=== PATIENT | male | born 1935 | race Caucasian/White ===

== ENCOUNTER 2021-05-22 19:22 | Inpatient (IN) | payer OTHER ==
[2021-05-22] MEDS ORDERED: SODIUM CHLORIDE 0.9% 500 ML INFUS.BAG IV ONE (20:53)
[2021-05-22 21:45] LABS: BASO % 0.3 % (0-2.0); EOS % 2.5 % (0-4.5); HEMATOCRIT 33.7 % (35.4-49); HEMOGLOBIN 11.2 GM/dL (11.7-16.9); LYMPH % 22.8 % (8-40); MCH 29.4 pg (25.7-33.7); MCHC 33.3 g/dl (32.0-35.9); MEAN CELL VOLUME 88.2 fl (80-96); MEAN PLT VOLUME 7.8 fl (7.5-11.1); MONO % 10.2 % (3.8-10.2); NEUT % 64.2 % (42.8-82.8); PLATELET COUNT 295 10^3/uL (134-434); RBC 3.82 M/mm3 (4.00-5.60); RDW 15.9 % (11.9-15.9); WHITE BLOOD COUNT 8.6 K/mm3 (4.0-10.0)
[2021-05-22 21:52] LABS: INR 1.09 (0.83-1.09); PROTHROMBIN TIME (PATIENT) 13.2 SEC (9.7-13.0)
[2021-05-22 21:55] LABS: ACTIVATED PTT 28.7 SECONDS (25.2-36.5)
[2021-05-22 22:10] LABS: CHLORIDE 107 mmol/L (98-107); SODIUM 140 mmol/L (136-145)
[2021-05-22 22:13] LABS: ALBUMIN 2.5 g/dl (3.4-5.0); ANION GAP 3 MMOL/L (8-16); BLOOD UREA NITROGEN 34.4 mg/dL (7-18); CALCIUM 8.2 mg/dL (8.5-10.1); CO2 29 mmol/L (21-32); GLUCOSE,RANDOM 133 mg/dL (74-106); LIPASE 420 U/L (73-393)
[2021-05-22 22:16] LABS: CREATININE 1.2 mg/dL (0.55-1.3); SGOT/AST 18 U/L (15-37); SGPT/ALT 17 U/L (13-61)
[2021-05-22 22:17] LABS: BILIRUBIN,TOTAL 0.5 mg/dL (0.2-1)
[2021-05-22 22:18] LABS: TOT PROT 6.4 g/dl (6.4-8.2)
[2021-05-22 22:19] LABS: ALK PHOS 126 U/L (45-117)
[2021-05-23] MEDS ORDERED: CEFTRIAXONE 1 GM in DEXTROSE 5%-WATER - 100 ML IVPB ONE (00:57)
[2021-05-23] MEDS ORDERED: CEFTRIAXONE 1 GM/50 ML BAG ONE (01:04)
[2021-05-23] MEDS: SODIUM CHLORIDE 1,000 ML IV SCH ×2 (05:24→12:08)
[2021-05-23] MEDS: INSULIN (NOVOLOG) ASPART 100 UNITS/ML 10ML VIAL SQ SCH ×4 (07:17→23:05)
[2021-05-23 08:56] LABS: EPI CELLS >36 /uL (0-25.1); HYALINE CASTS 193 /uL (0-3.1); PH,URINE 6.5 (5.0-8.0); URINE APPEARANCE CLOUDY; URINE BACTERIA >9,000 /uL (0-1359); URINE BILIRUBIN NEGATIVE (NEGATIVE); URINE COLOR YELLOW; URINE GLUCOSE (UA) NEGATIVE (NEGATIVE); URINE KETONE NEGATIVE (NEGATIVE); URINE LEUK ESTERASE 2+ (NEGATIVE); URINE NITRITE NEGATIVE (NEGATIVE); URINE PROTEIN 2+ (NEGATIVE); URINE RBC 3 /uL (0-23.9); URINE UROBILINOGEN 0.2 mg/dL (0.2-1.0); URINE WBC 92 /uL (0-25.8)
[2021-05-23] MEDS ORDERED: morphine CARPU-JECT 4 MG/1 ML DISP.SYRIN IVPUSH ONE (08:56)
[2021-05-23] MEDS ORDERED: MORPHINE SULFATE 2 MG/ML VIAL IVPUSH ONE (08:56)
[2021-05-23] MEDS ORDERED: MORPHINE SULFATE 2 MG/ML VIAL ONE (08:58)
[2021-05-23 10:45] LABS: BASO % 0.5 % (0-2.0); HEMATOCRIT 33.6 % (35.4-49); HEMOGLOBIN 11.2 GM/dL (11.7-16.9); LYMPH % 20.6 % (8-40); MCHC 33.3 g/dl (32.0-35.9); MEAN CELL VOLUME 87.3 fl (80-96); MEAN PLT VOLUME 7.6 fl (7.5-11.1); MONO % 7.7 % (3.8-10.2); NEUT % 67.2 % (42.8-82.8); PLATELET COUNT 275 10^3/uL (134-434); RBC 3.85 M/mm3 (4.00-5.60); RDW 16.2 % (11.9-15.9); WHITE BLOOD COUNT 8.2 K/mm3 (4.0-10.0)
[2021-05-23 11:08] LABS: ALBUMIN 2.5 g/dl (3.4-5.0); BLOOD UREA NITROGEN 30.9 mg/dL (7-18); CALCIUM 8.3 mg/dL (8.5-10.1)
[2021-05-23 11:09] LABS: MAGNESIUM 2.3 mg/dL (1.8-2.4)
[2021-05-23 11:11] LABS: CREATININE 0.9 mg/dL (0.55-1.3)
[2021-05-23 11:12] LABS: BILIRUBIN,TOTAL 0.6 mg/dL (0.2-1); IRON SERUM 24 ug/dL (50-175); PHOSPHOROUS 3.4 mg/dL (2.5-4.9); TOT PROT 6.3 g/dl (6.4-8.2)
[2021-05-23 11:15] LABS: TOTAL IRON BINDING CAPACITY 205 ug/dL (250-450)
[2021-05-23] MEDS: amLODIPine BESYLATE 5 MG TABLET (FP) PO SCH (12:36)
[2021-05-23] MEDS: CARVEDILOL 12.5 MG TABLET (FP) PO SCH ×2 (12:36→23:03)
[2021-05-23] MEDS: ASPIRIN 81 MG CHEWABLE TABLETS PO SCH (12:36)
[2021-05-23 13:19] VITALS: BMI 24.3
[2021-05-23] MEDS: HEPARIN NA (PORCINE) 5,000 UNITS/ML 1ML VIAL SQ SCH (23:03)
[2021-05-24] MEDS: HEPARIN NA (PORCINE) 5,000 UNITS/ML 1ML VIAL SQ SCH ×3 (05:44→21:51)
[2021-05-24] MEDS: SODIUM CHLORIDE 1,000 ML IV SCH (06:20)
[2021-05-24] MEDS: INSULIN (NOVOLOG) ASPART 100 UNITS/ML 10ML VIAL SQ SCH ×4 (06:30→21:51)
[2021-05-24] MEDS: CARVEDILOL 12.5 MG TABLET (FP) PO SCH ×2 (10:02→21:51)
[2021-05-24] MEDS: amLODIPine BESYLATE 5 MG TABLET (FP) PO SCH (10:02)
[2021-05-24] MEDS: ASPIRIN 81 MG CHEWABLE TABLETS PO SCH (10:02)
[2021-05-24 13:46] LABS: BASO % 0.5 % (0-2.0); EOS % 2.3 % (0-4.5); HEMATOCRIT 33.8 % (35.4-49); HEMOGLOBIN 11.3 GM/dL (11.7-16.9); LYMPH % 20.9 % (8-40); MCH 28.8 pg (25.7-33.7); MCHC 33.4 g/dl (32.0-35.9); MEAN CELL VOLUME 86.3 fl (80-96); MEAN PLT VOLUME 7.8 fl (7.5-11.1); MONO % 7.4 % (3.8-10.2); NEUT % 68.9 % (42.8-82.8); PLATELET COUNT 265 10^3/uL (134-434); RBC 3.92 M/mm3 (4.00-5.60); RDW 15.9 % (11.9-15.9); WHITE BLOOD COUNT 8.1 K/mm3 (4.0-10.0)
[2021-05-24 14:15] LABS: ALBUMIN 2.3 g/dl (3.4-5.0); CALCIUM 8.2 mg/dL (8.5-10.1); MAGNESIUM 2.5 mg/dL (1.8-2.4)
[2021-05-24 14:16] LABS: BLOOD UREA NITROGEN 26.6 mg/dL (7-18)
[2021-05-24 14:20] LABS: BILIRUBIN,TOTAL 0.6 mg/dL (0.2-1)
[2021-05-24] MEDS: MELATONIN 5 MG TABLETS PO PRN (22:27)
[2021-05-25] MEDS: SODIUM CHLORIDE 1,000 ML IV SCH (04:34)
[2021-05-25] MEDS: HEPARIN NA (PORCINE) 5,000 UNITS/ML 1ML VIAL SQ SCH ×3 (05:53→21:27)
[2021-05-25] MEDS: INSULIN (NOVOLOG) ASPART 100 UNITS/ML 10ML VIAL SQ SCH ×4 (06:02→21:33)
[2021-05-25 09:21] LABS: BASO % 0.3 % (0-2.0); EOS % 2.3 % (0-4.5); HEMOGLOBIN 10.7 GM/dL (11.7-16.9); LYMPH % 26.8 % (8-40); MCHC 33.6 g/dl (32.0-35.9); MEAN CELL VOLUME 86.4 fl (80-96); MEAN PLT VOLUME 7.7 fl (7.5-11.1); MONO % 9.2 % (3.8-10.2); NEUT % 61.4 % (42.8-82.8); PLATELET COUNT 274 10^3/uL (134-434); RDW 15.8 % (11.9-15.9); WHITE BLOOD COUNT 7.5 K/mm3 (4.0-10.0)
[2021-05-25 09:43] LABS: ALBUMIN 2.2 g/dl (3.4-5.0); BLOOD UREA NITROGEN 27.3 mg/dL (7-18); CALCIUM 7.8 mg/dL (8.5-10.1)
[2021-05-25 09:46] LABS: CREATININE 0.8 mg/dL (0.55-1.3)
[2021-05-25 09:48] LABS: BILIRUBIN,TOTAL 0.5 mg/dL (0.2-1); TOT PROT 5.7 g/dl (6.4-8.2)
[2021-05-25] MEDS: CARVEDILOL 12.5 MG TABLET (FP) PO SCH ×2 (10:00→21:28)
[2021-05-25] MEDS: amLODIPine BESYLATE 5 MG TABLET (FP) PO SCH (10:00)
[2021-05-25] MEDS: ASPIRIN 81 MG CHEWABLE TABLETS PO SCH (10:00)
[2021-05-25] MEDS: MELATONIN 5 MG TABLETS PO PRN (21:28)
[2021-05-26] MEDS: HEPARIN NA (PORCINE) 5,000 UNITS/ML 1ML VIAL SQ SCH ×3 (05:54→21:11)
[2021-05-26] MEDS: INSULIN (NOVOLOG) ASPART 100 UNITS/ML 10ML VIAL SQ SCH ×4 (06:16→21:12)
[2021-05-26 09:54] LABS: BASO % 0.8 % (0-2.0); EOS % 2.2 % (0-4.5); HEMATOCRIT 30.8 % (35.4-49); HEMOGLOBIN 10.2 GM/dL (11.7-16.9); LYMPH % 24.5 % (8-40); MCH 29.1 pg (25.7-33.7); MCHC 33.2 g/dl (32.0-35.9); MEAN CELL VOLUME 87.5 fl (80-96); MEAN PLT VOLUME 7.8 fl (7.5-11.1); MONO % 9.2 % (3.8-10.2); NEUT % 63.3 % (42.8-82.8); PLATELET COUNT 285 10^3/uL (134-434); RBC 3.52 M/mm3 (4.00-5.60); RDW 16.1 % (11.9-15.9); WHITE BLOOD COUNT 9.1 K/mm3 (4.0-10.0)
[2021-05-26] MEDS: CARVEDILOL 12.5 MG TABLET (FP) PO SCH ×2 (10:06→21:12)
[2021-05-26] MEDS: ASPIRIN 81 MG CHEWABLE TABLETS PO SCH (10:06)
[2021-05-26] MEDS: amLODIPine BESYLATE 5 MG TABLET (FP) PO SCH (10:06)
[2021-05-26 10:12] LABS: ALBUMIN 2.2 g/dl (3.4-5.0); BLOOD UREA NITROGEN 26.4 mg/dL (7-18); CALCIUM 8.1 mg/dL (8.5-10.1)
[2021-05-26 10:16] LABS: BILIRUBIN,TOTAL 0.5 mg/dL (0.2-1); CREATININE 0.8 mg/dL (0.55-1.3)
[2021-05-26 10:17] LABS: TOT PROT 5.6 g/dl (6.4-8.2)
[2021-05-26] MEDS: MELATONIN 5 MG TABLETS PO PRN (21:15)
[2021-05-27] MEDS ORDERED: ACETAMINOPHEN 325 MG TABLET (FP) PO ONE (00:16)
[2021-05-27] MEDS: INSULIN (NOVOLOG) ASPART 100 UNITS/ML 10ML VIAL SQ SCH (06:06)
[2021-05-27] MEDS: HEPARIN NA (PORCINE) 5,000 UNITS/ML 1ML VIAL SQ SCH ×3 (06:12→21:03)
[2021-05-27 09:54] LABS: EPI CELLS 2 /uL (0-25.1); HYALINE CASTS 1 /uL (0-3.1); PH,URINE 5.5 (5.0-8.0); URINE APPEARANCE CLOUDY; URINE BACTERIA 520 /uL (0-1359); URINE BILIRUBIN NEGATIVE (NEGATIVE); URINE COLOR YELLOW; URINE GLUCOSE (UA) NEGATIVE (NEGATIVE); URINE KETONE NEGATIVE (NEGATIVE); URINE LEUK ESTERASE 2+ (NEGATIVE); URINE NITRITE NEGATIVE (NEGATIVE); URINE PROTEIN 2+ (NEGATIVE); URINE RBC 9 /uL (0-23.9); URINE UROBILINOGEN 0.2 mg/dL (0.2-1.0); URINE WBC 777 /uL (0-25.8)
[2021-05-27] MEDS: CARVEDILOL 12.5 MG TABLET (FP) PO SCH ×2 (10:00→21:03)
[2021-05-27] MEDS: ASPIRIN 81 MG CHEWABLE TABLETS PO SCH (10:00)
[2021-05-27] MEDS: amLODIPine BESYLATE 5 MG TABLET (FP) PO SCH (10:00)
[2021-05-27] MEDS: ACETAMINOPHEN 325 MG TABLET (FP) PO PRN (10:00)
[2021-05-27 10:30] LABS: BASO % 0.6 % (0-2.0); EOS % 3.2 % (0-4.5); HEMATOCRIT 31.7 % (35.4-49); HEMOGLOBIN 10.5 GM/dL (11.7-16.9); LYMPH % 21.7 % (8-40); MCH 28.8 pg (25.7-33.7); MCHC 33.1 g/dl (32.0-35.9); MEAN CELL VOLUME 87.1 fl (80-96); MEAN PLT VOLUME 7.3 fl (7.5-11.1); MONO % 8.8 % (3.8-10.2); NEUT % 65.7 % (42.8-82.8); PLATELET COUNT 269 10^3/uL (134-434); RBC 3.64 M/mm3 (4.00-5.60); WHITE BLOOD COUNT 8.5 K/mm3 (4.0-10.0)
[2021-05-27 10:56] LABS: ALBUMIN 2.2 g/dl (3.4-5.0); CALCIUM 8.3 mg/dL (8.5-10.1)
[2021-05-27 10:57] LABS: BLOOD UREA NITROGEN 27.5 mg/dL (7-18)
[2021-05-27 11:00] LABS: CREATININE 0.9 mg/dL (0.55-1.3)
[2021-05-27 11:01] LABS: BILIRUBIN,TOTAL 0.4 mg/dL (0.2-1); TOT PROT 5.8 g/dl (6.4-8.2)
[2021-05-27] MEDS: INSULIN SLIDING SCALE (NOVOLOG) 1 VIAL SQ SCH ×3 (11:22→21:06)
[2021-05-27] MEDS ORDERED: PT OWN MED DRAWER 7, Y5N ONE (14:36)
[2021-05-27] MEDS: MELATONIN 5 MG TABLETS PO PRN (21:03)
[2021-05-28] MEDS: INSULIN SLIDING SCALE (NOVOLOG) 1 VIAL SQ SCH ×4 (06:03→21:12)
[2021-05-28] MEDS: HEPARIN NA (PORCINE) 5,000 UNITS/ML 1ML VIAL SQ SCH ×3 (06:03→21:08)
[2021-05-28] MEDS ORDERED: PT OWN MED DRAWER 7, Y5N ONE (06:12)
[2021-05-28] MEDS: ASPIRIN 81 MG CHEWABLE TABLETS PO SCH (09:35)
[2021-05-28] MEDS: amLODIPine BESYLATE 5 MG TABLET (FP) PO SCH (09:35)
[2021-05-28] MEDS: CARVEDILOL 12.5 MG TABLET (FP) PO SCH ×2 (09:36→21:08)
[2021-05-28] MEDS: LISINOPRIL 5 MG TABLET PO SCH (16:30)
[2021-05-28] MEDS: MELATONIN 5 MG TABLETS PO PRN (21:08)
[2021-05-29] MEDS: ACETAMINOPHEN 325 MG TABLET (FP) PO PRN (03:46)
[2021-05-29] MEDS: HEPARIN NA (PORCINE) 5,000 UNITS/ML 1ML VIAL SQ SCH ×3 (06:11→21:48)
[2021-05-29] MEDS: INSULIN SLIDING SCALE (NOVOLOG) 1 VIAL SQ SCH ×4 (06:11→21:48)
[2021-05-29] MEDS: LISINOPRIL 5 MG TABLET PO SCH (10:15)
[2021-05-29] MEDS: amLODIPine BESYLATE 5 MG TABLET (FP) PO SCH (10:15)
[2021-05-29] MEDS: CARVEDILOL 12.5 MG TABLET (FP) PO SCH ×2 (10:15→21:48)
[2021-05-29] MEDS: ASPIRIN 81 MG CHEWABLE TABLETS PO SCH (10:15)
[2021-05-29 19:19] LABS: BASO % 0.6 % (0-2.0); EOS % 3.6 % (0-4.5); HEMATOCRIT 31.4 % (35.4-49); HEMOGLOBIN 10.4 GM/dL (11.7-16.9); LYMPH % 22.8 % (8-40); MCH 28.9 pg (25.7-33.7); MCHC 33.1 g/dl (32.0-35.9); MEAN CELL VOLUME 87.2 fl (80-96); MEAN PLT VOLUME 7.1 fl (7.5-11.1); MONO % 9.9 % (3.8-10.2); NEUT % 63.1 % (42.8-82.8); PLATELET COUNT 297 10^3/uL (134-434); RDW 16.2 % (11.9-15.9); WHITE BLOOD COUNT 9.1 K/mm3 (4.0-10.0)
[2021-05-29 19:42] LABS: ALBUMIN 2.2 g/dl (3.4-5.0); CALCIUM 8.4 mg/dL (8.5-10.1)
[2021-05-29 19:43] LABS: BLOOD UREA NITROGEN 33.8 mg/dL (7-18)
[2021-05-29 19:47] LABS: BILIRUBIN,TOTAL 0.3 mg/dL (0.2-1); TOT PROT 5.8 g/dl (6.4-8.2)
[2021-05-30] MEDS: HEPARIN NA (PORCINE) 5,000 UNITS/ML 1ML VIAL SQ SCH ×3 (05:40→21:04)
[2021-05-30] MEDS: INSULIN SLIDING SCALE (NOVOLOG) 1 VIAL SQ SCH ×4 (06:04→21:05)
[2021-05-30] MEDS: amLODIPine BESYLATE 5 MG TABLET (FP) PO SCH ×2 (06:06→10:06)
[2021-05-30 09:25] LABS: EOS % 3.6 % (0-4.5); HEMATOCRIT 31.9 % (35.4-49); HEMOGLOBIN 10.8 GM/dL (11.7-16.9); LYMPH % 23.6 % (8-40); MCH 29.1 pg (25.7-33.7); MCHC 33.8 g/dl (32.0-35.9); MEAN CELL VOLUME 86.2 fl (80-96); MEAN PLT VOLUME 7.6 fl (7.5-11.1); NEUT % 62.8 % (42.8-82.8); PLATELET COUNT 293 10^3/uL (134-434); RDW 16.3 % (11.9-15.9); WHITE BLOOD COUNT 8.8 K/mm3 (4.0-10.0)
[2021-05-30 09:39] LABS: CALCIUM 8.3 mg/dL (8.5-10.1)
[2021-05-30 09:40] LABS: ALBUMIN 2.2 g/dl (3.4-5.0); BLOOD UREA NITROGEN 28.8 mg/dL (7-18)
[2021-05-30 09:43] LABS: CREATININE 0.9 mg/dL (0.55-1.3)
[2021-05-30 09:44] LABS: BILIRUBIN,TOTAL 0.5 mg/dL (0.2-1); TOT PROT 5.9 g/dl (6.4-8.2)
[2021-05-30] MEDS: LISINOPRIL 5 MG TABLET PO SCH (10:06)
[2021-05-30] MEDS: CARVEDILOL 12.5 MG TABLET (FP) PO SCH ×2 (10:06→21:04)
[2021-05-30] MEDS: ASPIRIN 81 MG CHEWABLE TABLETS PO SCH (10:06)
[2021-05-30] MEDS ORDERED: TUBERCULIN PPD 5 TU/0.1ML SYRINGE (IN PATIENT USE ONLY) ID ONE (12:00)
[2021-05-30] MEDS: ACETAMINOPHEN 325 MG TABLET (FP) PO PRN (19:22)
[2021-05-31] MEDS: HEPARIN NA (PORCINE) 5,000 UNITS/ML 1ML VIAL SQ SCH ×3 (05:58→21:08)
[2021-05-31] MEDS: INSULIN SLIDING SCALE (NOVOLOG) 1 VIAL SQ SCH ×4 (06:00→21:18)
[2021-05-31 09:15] LABS: BASO % 0.5 % (0-2.0); EOS % 3.7 % (0-4.5); HEMATOCRIT 32.4 % (35.4-49); HEMOGLOBIN 10.8 GM/dL (11.7-16.9); MCH 29.1 pg (25.7-33.7); MCHC 33.4 g/dl (32.0-35.9); MEAN CELL VOLUME 87.1 fl (80-96); MEAN PLT VOLUME 7.1 fl (7.5-11.1); MONO % 7.9 % (3.8-10.2); NEUT % 65.9 % (42.8-82.8); PLATELET COUNT 314 10^3/uL (134-434); RBC 3.72 M/mm3 (4.00-5.60); RDW 16.5 % (11.9-15.9); WHITE BLOOD COUNT 9.9 K/mm3 (4.0-10.0)
[2021-05-31 10:02] LABS: BLOOD UREA NITROGEN 30.1 mg/dL (7-18)
[2021-05-31 10:03] LABS: ALBUMIN 2.2 g/dl (3.4-5.0); CALCIUM 8.2 mg/dL (8.5-10.1)
[2021-05-31 10:05] LABS: CREATININE 0.9 mg/dL (0.55-1.3)
[2021-05-31 10:08] LABS: BILIRUBIN,TOTAL 0.6 mg/dL (0.2-1)
[2021-05-31] MEDS: amLODIPine BESYLATE 5 MG TABLET (FP) PO SCH (11:28)
[2021-05-31] MEDS: ASPIRIN 81 MG CHEWABLE TABLETS PO SCH (11:29)
[2021-05-31] MEDS: CARVEDILOL 12.5 MG TABLET (FP) PO SCH ×2 (11:29→21:08)
[2021-05-31] MEDS: LISINOPRIL 5 MG TABLET PO SCH (11:29)
[2021-05-31 14:15] LABS: ALBUMIN % 62.7 % (.); ALPHA-1 FOR UPE 1.9 % (.)
[2021-05-31] MEDS: MELATONIN 5 MG TABLETS PO PRN (21:08)
[2021-05-31] MEDS: ACETAMINOPHEN 325 MG TABLET (FP) PO PRN (22:59)
[2021-06-01] MEDS: ACETAMINOPHEN 325 MG TABLET (FP) PO PRN (05:59)
[2021-06-01] MEDS: HEPARIN NA (PORCINE) 5,000 UNITS/ML 1ML VIAL SQ SCH ×3 (06:04→21:13)
[2021-06-01] MEDS: INSULIN SLIDING SCALE (NOVOLOG) 1 VIAL SQ SCH ×4 (06:05→21:29)
[2021-06-01] MEDS: CARVEDILOL 12.5 MG TABLET (FP) PO SCH ×2 (10:27→21:14)
[2021-06-01] MEDS: amLODIPine BESYLATE 5 MG TABLET (FP) PO SCH (10:27)
[2021-06-01] MEDS: LISINOPRIL 5 MG TABLET PO SCH (10:27)
[2021-06-01] MEDS: ASPIRIN 81 MG CHEWABLE TABLETS PO SCH (10:27)
[2021-06-01 11:27] LABS: BASO % 0.7 % (0-2.0); EOS % 3.7 % (0-4.5); HEMATOCRIT 32.1 % (35.4-49); HEMOGLOBIN 10.9 GM/dL (11.7-16.9); MCH 29.4 pg (25.7-33.7); MEAN CELL VOLUME 86.6 fl (80-96); MEAN PLT VOLUME 6.8 fl (7.5-11.1); MONO % 6.3 % (3.8-10.2); NEUT % 68.3 % (42.8-82.8); PLATELET COUNT 317 10^3/uL (134-434); RBC 3.71 M/mm3 (4.00-5.60); RDW 16.7 % (11.9-15.9); WHITE BLOOD COUNT 9.3 K/mm3 (4.0-10.0)
[2021-06-01 12:17] LABS: ALBUMIN 2.3 g/dl (3.4-5.0)
[2021-06-01 12:18] LABS: BLOOD UREA NITROGEN 30.5 mg/dL (7-18)
[2021-06-01 12:21] LABS: CALCIUM 8.5 mg/dL (8.5-10.1); CREATININE 0.9 mg/dL (0.55-1.3)
[2021-06-01 12:22] LABS: BILIRUBIN,TOTAL 0.4 mg/dL (0.2-1); TOT PROT 6.1 g/dl (6.4-8.2)
[2021-06-01 12:23] LABS: MAGNESIUM 1.9 mg/dL (1.8-2.4)
[2021-06-01] MEDS: MELATONIN 5 MG TABLETS PO PRN (21:13)
[2021-06-02] MEDS: ACETAMINOPHEN 325 MG TABLET (FP) PO PRN ×2 (00:19→06:23)
[2021-06-02] MEDS: HEPARIN NA (PORCINE) 5,000 UNITS/ML 1ML VIAL SQ SCH ×3 (06:22→21:15)
[2021-06-02] MEDS: INSULIN SLIDING SCALE (NOVOLOG) 1 VIAL SQ SCH ×4 (06:31→21:15)
[2021-06-02 09:02] LABS: BASO % 0.3 % (0-2.0); EOS % 2.8 % (0-4.5); HEMATOCRIT 32.5 % (35.4-49); HEMOGLOBIN 10.6 GM/dL (11.7-16.9); LYMPH % 17.3 % (8-40); MCH 28.5 pg (25.7-33.7); MCHC 32.7 g/dl (32.0-35.9); MEAN CELL VOLUME 87.1 fl (80-96); MEAN PLT VOLUME 6.9 fl (7.5-11.1); MONO % 8.6 % (3.8-10.2); PLATELET COUNT 305 10^3/uL (134-434); RBC 3.73 M/mm3 (4.00-5.60); RDW 16.5 % (11.9-15.9); WHITE BLOOD COUNT 11.1 K/mm3 (4.0-10.0)
[2021-06-02 09:16] LABS: CALCIUM 8.9 mg/dL (8.5-10.1)
[2021-06-02 09:17] LABS: ALBUMIN 2.3 g/dl (3.4-5.0); BLOOD UREA NITROGEN 29.5 mg/dL (7-18)
[2021-06-02 09:20] LABS: CREATININE 0.9 mg/dL (0.55-1.3)
[2021-06-02 09:21] LABS: BILIRUBIN,TOTAL 0.7 mg/dL (0.2-1)
[2021-06-02] MEDS: LISINOPRIL 10 MG TABLET PO SCH (11:12)
[2021-06-02] MEDS: ASPIRIN 81 MG CHEWABLE TABLETS PO SCH (11:12)
[2021-06-02] MEDS: CARVEDILOL 12.5 MG TABLET (FP) PO SCH ×2 (11:12→21:14)
[2021-06-02] MEDS: amLODIPine BESYLATE 5 MG TABLET (FP) PO SCH (11:12)
[2021-06-03] MEDS: INSULIN SLIDING SCALE (NOVOLOG) 1 VIAL SQ SCH ×3 (06:41→18:47)
[2021-06-03] MEDS: HEPARIN NA (PORCINE) 5,000 UNITS/ML 1ML VIAL SQ SCH ×2 (06:41→15:40)
[2021-06-03] MEDS ORDERED: amLODIPine BESYLATE 10 MG TABLET (FP) PO SCH (10:00)
[2021-06-03] MEDS: ASPIRIN 81 MG CHEWABLE TABLETS PO SCH (11:09)
[2021-06-03] MEDS: LISINOPRIL 10 MG TABLET PO SCH (11:09)
[2021-06-03] MEDS: CARVEDILOL 12.5 MG TABLET (FP) PO SCH (11:10)
[2021-06-03 15:30] VITALS: BP 151/57; PULSE 69; TEMP 98.3
== END 2021-06-03 17:04 | DRG 445 ==
LOC: JER 19:22 → UNDOADMOB 05-23 02:29 → JERBED 05-23 02:29 → INTOOBSV 05-23 02:29 → J5S 05-23 10:50 → JERBED 05-23 10:50 → J5S 05-23 17:59 → JERBED 05-23 17:59 → OBSVTOIN 06-02 08:44
PROVIDERS: ADMIT Internal Medicine; ATTEND Nurse Practitioner Acute Care
DX: K82.8 Other specified diseases of gallbladder (principal); E46 Unspecified protein-calorie malnutrition; I69.351 Hemiplegia and hemiparesis following cerebral infarction affecting right dominant side; I25.10 Atherosclerotic heart disease of native coronary artery without angina pectoris; E11.51 Type 2 diabetes mellitus with diabetic peripheral angiopathy without gangrene; E11.22 Type 2 diabetes mellitus with diabetic chronic kidney disease; I12.9 Hypertensive chronic kidney disease with stage 1 through stage 4 chronic kidney disease, or unspecified chronic kidney disease; N18.9 Chronic kidney disease, unspecified; D50.9 Iron deficiency anemia, unspecified; K21.9 Gastro-esophageal reflux disease without esophagitis; E78.5 Hyperlipidemia, unspecified; N28.1 Cyst of kidney, acquired; Z68.25 Body mass index [BMI] 25.0-25.9, adult; R16.0 Hepatomegaly, not elsewhere classified; I51.7 Cardiomegaly; E88.09 Other disorders of plasma-protein metabolism, not elsewhere classified; Z20.1 Contact with and (suspected) exposure to tuberculosis; Z95.1 Presence of aortocoronary bypass graft
CPT/HCPCS: 36415; 71045-TC-FY; 73562-TC-RT-FY; 74018-TC-FY; 76700-TC; 76775-TC; 80053; 81003; 82550; 82570; 82607; 82728; 82962; 83036; 83540; 83550; 83690; 83735; 84100; 84155; 84156; 84165; 84166; 84484; 85025; 85610; 85651; 85730; 86140; 86480; 93005; 93010; 97116-GP; 97162-GP; 99285-25; C9803; G0378; J1644; U0003; U0005

== ENCOUNTER 2021-09-16 15:54 | Inpatient (IN) | payer OTHER ==
[2021-09-16 16:15] VITALS: BMI 24.6
[2021-09-16] MEDS ORDERED: ACETAMINOPHEN 1000 MG/100 ML BAG IVPB ONE (19:07)
[2021-09-16 19:37] LABS: BASO % 0.4 % (0-2.0); EOS % 0.7 % (0-4.5); HEMOGLOBIN 12.9 GM/dL (11.7-16.9); LYMPH % 24.3 % (8-40); MCHC 33.1 g/dl (32.0-35.9); MEAN CELL VOLUME 81.8 fl (80-96); MEAN PLT VOLUME 7.7 fl (7.5-11.1); MONO % 9.4 % (3.8-10.2); NEUT % 65.2 % (42.8-82.8); PLATELET COUNT 261 10^3/uL (134-434); RBC 4.77 M/mm3 (4.00-5.60); RDW 16.6 % (11.9-15.9); WHITE BLOOD COUNT 7.8 K/mm3 (4.0-10.0)
[2021-09-16 19:46] LABS: INR 1.03 (0.83-1.09); PROTHROMBIN TIME (PATIENT) 11.9 SEC (9.7-13.0)
[2021-09-16 19:59] LABS: ALBUMIN 3.3 g/dl (3.4-5.0); CALCIUM 8.8 mg/dL (8.5-10.1)
[2021-09-16 20:00] LABS: BLOOD UREA NITROGEN 39.4 mg/dL (7-18)
[2021-09-16 20:03] LABS: CREATININE 1.4 mg/dL (0.55-1.3)
[2021-09-16 20:04] LABS: BILIRUBIN,TOTAL 0.4 mg/dL (0.2-1); TOT PROT 7.1 g/dl (6.4-8.2)
[2021-09-16] MEDS ORDERED: ACETAMINOPHEN INJECTION 100 ML IVPB ONE (20:09)
[2021-09-16 21:14] LABS: EPI CELLS 1 /uL (0-25.1); HYALINE CASTS 1 /uL (0-3.1); PH,URINE 5.5 (5.0-8.0); URINE APPEARANCE CLEAR; URINE BACTERIA 5293 /uL (0-1359); URINE BILIRUBIN NEGATIVE (NEGATIVE); URINE COLOR YELLOW; URINE GLUCOSE (UA) NEGATIVE (NEGATIVE); URINE KETONE NEGATIVE (NEGATIVE); URINE LEUK ESTERASE 2+ (NEGATIVE); URINE NITRITE POSITIVE (NEGATIVE); URINE PROTEIN 2+ (NEGATIVE); URINE RBC 8 /uL (0-23.9); URINE UROBILINOGEN 0.2 mg/dL (0.2-1.0); URINE WBC 493 /uL (0-25.8)
[2021-09-16] MEDS ORDERED: CEFTRIAXONE 1,000 MG in DEXTROSE 5%-WATER - 50 ML IVPB ONE (21:20)
[2021-09-16] MEDS ORDERED: SODIUM CHLORIDE 0.9% 500 ML INFUS.BAG IV ONE (21:21)
[2021-09-16] MEDS ORDERED: CEFTRIAXONE 1 GM/50 ML BAG ONE (22:40)
[2021-09-17] MEDS ORDERED: DOCUSATE SODIUM 100 MG CAPSULE (FP) PO PRN (01:37)
[2021-09-17] MEDS ORDERED: SODIUM CHLORIDE 1,000 ML IV SCH (01:45)
[2021-09-17] MEDS ORDERED: HEPARIN NA (PORCINE) 5,000 UNITS/ML 1ML VIAL SQ SCH (02:00)
[2021-09-17] MEDS ORDERED: POLYETHYLENE GLYCOL (HEALTHYLAX) 3350 17 GM PACKET PO PRN (02:27)
[2021-09-17] MEDS ORDERED: SENNOSIDES 8.6MG TABLET (FP) PO PRN (02:27)
[2021-09-17] MEDS ORDERED: HEPARIN NA (PORCINE) 5,000 UNITS/ML 1ML VIAL ONE (06:45)
[2021-09-17] MEDS: HEPARIN NA (PORCINE) 5,000 UNITS/ML 1ML VIAL SQ SCH ×2 (06:57→15:25)
[2021-09-17] MEDS: INSULIN SLIDING SCALE (NOVOLOG) 1 VIAL SQ SCH ×5 (06:57→22:43)
[2021-09-17] MEDS ORDERED: POLYETHYLENE GLYCOL (HEALTHYLAX) 3350 17 GM PACKET PO SCH (10:00)
[2021-09-17] MEDS ORDERED: ASPIRIN 81 MG CHEWABLE TABLETS ONE (10:51)
[2021-09-17] MEDS ORDERED: CEFTRIAXONE 1 GM/50 ML BAG ONE (10:52)
[2021-09-17] MEDS ORDERED: CARVEDILOL 3.125 MG TABLET (FP) ONE (10:52)
[2021-09-17] MEDS: CARVEDILOL 12.5 MG TABLET (FP) PO SCH ×2 (11:32→22:42)
[2021-09-17] MEDS: CEFTRIAXONE 1 GM in DEXTROSE 5%-WATER - 50 ML IVPB SCH (11:32)
[2021-09-17] MEDS: ASPIRIN 81 MG CHEWABLE TABLETS PO SCH (11:32)
[2021-09-17] MEDS ORDERED: ENOXAPARIN NA (PORCINE) 60 MG/0.6 ML DISP.SYRIN SQ ONE ×2 (15:14→15:15)
[2021-09-17] MEDS ORDERED: SENNOSIDES 8.6MG TABLET (FP) PO SCH (22:00)
[2021-09-17] MEDS ORDERED: CARVEDILOL 12.5 MG TABLET (FP) ONE (22:24)
[2021-09-18] MEDS: INSULIN SLIDING SCALE (NOVOLOG) 1 VIAL SQ SCH ×4 (07:29→21:49)
[2021-09-18 08:24] LABS: BASO % 0.5 % (0-2.0); EOS % 1.1 % (0-4.5); HEMATOCRIT 36.4 % (35.4-49); HEMOGLOBIN 11.8 GM/dL (11.7-16.9); LYMPH % 27.8 % (8-40); MCH 26.8 pg (25.7-33.7); MCHC 32.6 g/dl (32.0-35.9); MEAN CELL VOLUME 82.4 fl (80-96); MONO % 14.1 % (3.8-10.2); NEUT % 56.5 % (42.8-82.8); PLATELET COUNT 235 10^3/uL (134-434); RBC 4.41 M/mm3 (4.00-5.60); RDW 16.6 % (11.9-15.9); WHITE BLOOD COUNT 8.3 K/mm3 (4.0-10.0)
[2021-09-18 08:46] LABS: ALBUMIN 3.1 g/dl (3.4-5.0); BLOOD UREA NITROGEN 38.7 mg/dL (7-18); CALCIUM 8.3 mg/dL (8.5-10.1); MAGNESIUM 1.9 mg/dL (1.8-2.4)
[2021-09-18 08:49] LABS: CREATININE 1.5 mg/dL (0.55-1.3); PHOSPHOROUS 3.4 mg/dL (2.5-4.9)
[2021-09-18 08:51] LABS: BILIRUBIN,TOTAL 0.4 mg/dL (0.2-1); TOT PROT 6.4 g/dl (6.4-8.2)
[2021-09-18] MEDS ORDERED: ASPIRIN 81 MG CHEWABLE TABLETS ONE (10:37)
[2021-09-18] MEDS ORDERED: CARVEDILOL 12.5 MG TABLET (FP) ONE (10:38)
[2021-09-18] MEDS ORDERED: CEFTRIAXONE 1 GM/50 ML BAG ONE (10:38)
[2021-09-18] MEDS ORDERED: amLODIPine BESYLATE 5 MG TABLET (FP) ONE (10:38)
[2021-09-18] MEDS ORDERED: ENOXAPARIN NA (PORCINE) 40 MG/0.4 ML DISP.SYRIN SQ ONE (10:38)
[2021-09-18] MEDS: CEFTRIAXONE 1 GM in DEXTROSE 5%-WATER - 50 ML IVPB SCH (10:45)
[2021-09-18] MEDS: ASPIRIN 81 MG CHEWABLE TABLETS PO SCH (10:45)
[2021-09-18] MEDS: ENOXAPARIN NA (PORCINE) 60 MG/0.6 ML DISP.SYRIN SQ SCH ×2 (10:45→21:50)
[2021-09-18] MEDS: amLODIPine BESYLATE 5 MG TABLET (FP) PO SCH (10:45)
[2021-09-18] MEDS: CARVEDILOL 12.5 MG TABLET (FP) PO SCH ×2 (10:45→21:50)
[2021-09-19] MEDS: INSULIN SLIDING SCALE (NOVOLOG) 1 VIAL SQ SCH ×4 (06:33→21:43)
[2021-09-19 07:31] LABS: HEMATOCRIT 32.8 % (35.4-49); HEMOGLOBIN 11.1 GM/dL (11.7-16.9); MCH 27.7 pg (25.7-33.7); MCHC 33.9 g/dl (32.0-35.9); MEAN CELL VOLUME 81.6 fl (80-96); MEAN PLT VOLUME 7.9 fl (7.5-11.1); PLATELET COUNT 207 10^3/uL (134-434); RBC 4.01 M/mm3 (4.00-5.60); RDW 16.4 % (11.9-15.9); WHITE BLOOD COUNT 7.7 K/mm3 (4.0-10.0)
[2021-09-19 08:06] LABS: ALBUMIN 2.8 g/dl (3.4-5.0); BLOOD UREA NITROGEN 38.5 mg/dL (7-18); MAGNESIUM 1.9 mg/dL (1.8-2.4)
[2021-09-19 08:09] LABS: CREATININE 1.5 mg/dL (0.55-1.3); PHOSPHOROUS 3.3 mg/dL (2.5-4.9)
[2021-09-19 08:10] LABS: BILIRUBIN,TOTAL 0.4 mg/dL (0.2-1)
[2021-09-19] MEDS ORDERED: DEXTROSE 5%-WATER - 50 ML IVPB ONE (08:37)
[2021-09-19] MEDS ORDERED: cefTRIAXone SODIUM 1 GM VIAL ONE (08:37)
[2021-09-19] MEDS: CEFTRIAXONE 1 GM in DEXTROSE 5%-WATER - 50 ML IVPB SCH (09:50)
[2021-09-19] MEDS: amLODIPine BESYLATE 5 MG TABLET (FP) PO SCH (09:50)
[2021-09-19] MEDS: CARVEDILOL 12.5 MG TABLET (FP) PO SCH ×2 (09:50→21:37)
[2021-09-19] MEDS: ASPIRIN 81 MG CHEWABLE TABLETS PO SCH (09:50)
[2021-09-19] MEDS: ENOXAPARIN NA (PORCINE) 60 MG/0.6 ML DISP.SYRIN SQ SCH ×2 (09:51→21:37)
[2021-09-19 10:55] LABS: ERYTHROCYTE SEDIMENTATION RATE 44 mm/hr (0-20)
[2021-09-19 11:20] LABS: ANISOCYTOSIS 0; HELMET CELLS 0; HOWELL-JOLLY BODIES 0; MACROCYTOSIS 0; OVALOCYTE 0; PLATELET ESTIMATE NORMAL; ROULEAU 0; SICKELED CELLS 0; TARGET CELLS 0; TEAR DROP CELLS 0; TOXIC GRANULATION 0
[2021-09-20] MEDS: INSULIN SLIDING SCALE (NOVOLOG) 1 VIAL SQ SCH ×3 (06:26→18:10)
[2021-09-20 10:11] LABS: BASO % 0.3 % (0-2.0); EOS % 2.1 % (0-4.5); HEMATOCRIT 34.6 % (35.4-49); HEMOGLOBIN 11.5 GM/dL (11.7-16.9); LYMPH % 26.1 % (8-40); MCHC 33.1 g/dl (32.0-35.9); MEAN CELL VOLUME 81.7 fl (80-96); MONO % 11.1 % (3.8-10.2); NEUT % 60.4 % (42.8-82.8); PLATELET COUNT 203 10^3/uL (134-434); RBC 4.24 M/mm3 (4.00-5.60); WHITE BLOOD COUNT 7.4 K/mm3 (4.0-10.0)
[2021-09-20 10:19] LABS: ALBUMIN 2.5 g/dl (3.4-5.0); CALCIUM 8.2 mg/dL (8.5-10.1)
[2021-09-20 10:20] LABS: BLOOD UREA NITROGEN 33.4 mg/dL (7-18); MAGNESIUM 1.9 mg/dL (1.8-2.4)
[2021-09-20 10:23] LABS: CREATININE 1.3 mg/dL (0.55-1.3); PHOSPHOROUS 3.1 mg/dL (2.5-4.9)
[2021-09-20 10:24] LABS: BILIRUBIN,TOTAL 0.4 mg/dL (0.2-1); TOT PROT 5.9 g/dl (6.4-8.2)
[2021-09-20] MEDS: amLODIPine BESYLATE 5 MG TABLET (FP) PO SCH (10:44)
[2021-09-20] MEDS: ASPIRIN 81 MG CHEWABLE TABLETS PO SCH (10:44)
[2021-09-20] MEDS: ENOXAPARIN NA (PORCINE) 60 MG/0.6 ML DISP.SYRIN SQ SCH (10:45)
[2021-09-20] MEDS: CARVEDILOL 12.5 MG TABLET (FP) PO SCH (10:45)
[2021-09-20 14:38] VITALS: BP 130/57; PULSE 66; TEMP 98.6
== END 2021-09-20 19:46 | disposition home health service (06) | DRG 689 ==
LOC: JER 15:54 → JERBED 22:54 → J4W 09-18 22:18
PROVIDERS: ADMIT Hospitalist; ATTEND Internal Medicine
DX: N39.0 Urinary tract infection, site not specified (principal); U07.1 COVID-19; I82.401 Acute embolism and thrombosis of unspecified deep veins of right lower extremity; N17.9 Acute kidney failure, unspecified; I69.351 Hemiplegia and hemiparesis following cerebral infarction affecting right dominant side; I25.10 Atherosclerotic heart disease of native coronary artery without angina pectoris; Z95.1 Presence of aortocoronary bypass graft; I12.9 Hypertensive chronic kidney disease with stage 1 through stage 4 chronic kidney disease, or unspecified chronic kidney disease; N18.9 Chronic kidney disease, unspecified; E11.22 Type 2 diabetes mellitus with diabetic chronic kidney disease; N40.0 Benign prostatic hyperplasia without lower urinary tract symptoms
CPT/HCPCS: 36415; 70450-TC; 71045-TC-FY; 74177-TC; 76775-TC; 80053; 81003; 82550; 82728; 82962; 83605; 83690; 83735; 84100; 84443; 84484; 85025; 85379; 85610; 85651; 85730; 86140; 86850; 86900; 86901; 87086; 87186; 93005; 93010; 93306-TC; 93880-TC; 93970-TC; 99285-25; C9803-CS; J1644; Q9967; U0003; U0005

== ENCOUNTER 2021-12-17 10:53 | Observation (INO) | payer OTHER ==
[2021-12-17 11:37] VITALS: BMI 23.1
[2021-12-17 13:31] LABS: EPI CELLS 2 /uL (0-25.1); HYALINE CASTS 0 /uL (0-3.1); URINE APPEARANCE CLEAR; URINE BACTERIA 11 /uL (0-1359); URINE BILIRUBIN NEGATIVE (NEGATIVE); URINE COLOR YELLOW; URINE GLUCOSE (UA) NEGATIVE (NEGATIVE); URINE KETONE NEGATIVE (NEGATIVE); URINE LEUK ESTERASE NEGATIVE (NEGATIVE); URINE NITRITE NEGATIVE (NEGATIVE); URINE PROTEIN 2+ (NEGATIVE); URINE RBC 4 /uL (0-23.9); URINE UROBILINOGEN 0.2 mg/dL (0.2-1.0); URINE WBC 1 /uL (0-25.8)
[2021-12-17 13:50] VITALS: TEMP 98.6
[2021-12-17] MEDS ORDERED: CARVEDILOL 12.5 MG TABLET (FP) PO ONE ×2 (14:48→14:54)
[2021-12-17 15:50] LABS: BASO % 0.6 % (0-2.0); HEMOGLOBIN 12.9 GM/dL (11.7-16.9); LYMPH % 26.4 % (8-40); MCH 27.1 pg (25.7-33.7); MCHC 32.3 g/dl (32.0-35.9); MEAN CELL VOLUME 83.9 fl (80-96); MEAN PLT VOLUME 8.1 fl (7.5-11.1); MONO % 8.4 % (3.8-10.2); NEUT % 60.6 % (42.8-82.8); PLATELET COUNT 242 10^3/uL (134-434); RBC 4.76 M/mm3 (4.00-5.60); RDW 16.2 % (11.9-15.9); WHITE BLOOD COUNT 9.3 K/mm3 (4.0-10.0)
[2021-12-17] MEDS ORDERED: CARVEDILOL 12.5 MG TABLET (FP) ONE (15:53)
[2021-12-17 16:17] LABS: CALCIUM 8.8 mg/dL (8.5-10.1)
[2021-12-17 16:19] LABS: BLOOD UREA NITROGEN 29.7 mg/dL (7-18)
[2021-12-17 16:22] LABS: CREATININE 1.1 mg/dL (0.55-1.3)
[2021-12-17 16:23] LABS: BILIRUBIN,TOTAL 0.6 mg/dL (0.2-1); TOT PROT 6.8 g/dl (6.4-8.2)
[2021-12-17] MEDS ORDERED: cloNIDine HCL 0.1 MG TABLET PO ONE (16:39)
[2021-12-17] MEDS ORDERED: cloNIDine HCL 0.1 MG TABLET ONE (16:48)
[2021-12-17 18:08] VITALS: BP 164/67; PULSE 70
== END 2021-12-17 18:47 | disposition home or self-care (01) ==
LOC: JER 10:53 → JERBED 16:56
PROVIDERS: ADMIT Internal Medicine; ATTEND Internal Medicine
DX: I25.10 Atherosclerotic heart disease of native coronary artery without angina pectoris (principal); I13.10 Hypertensive heart and chronic kidney disease without heart failure, with stage 1 through stage 4 chronic kidney disease, or unspecified chronic kidney disease; N18.9 Chronic kidney disease, unspecified; I25.2 Old myocardial infarction; R30.0 Dysuria; E78.00 Pure hypercholesterolemia, unspecified; E11.9 Type 2 diabetes mellitus without complications; I69.351 Hemiplegia and hemiparesis following cerebral infarction affecting right dominant side; Z95.1 Presence of aortocoronary bypass graft; N40.0 Benign prostatic hyperplasia without lower urinary tract symptoms
CPT/HCPCS: 36415; 80053; 81003; 84484; 85025; 87077; 87086; 93005; 93010; 99285-25; G0378; J0735

== ENCOUNTER 2021-12-18 11:49 | Emergency (ER) | payer OTHER ==
[2021-12-18 12:21] VITALS: TEMP 98; BMI 21.6
[2021-12-18 14:55] LABS: BASO % 0.4 % (0-2.0); EOS % 0.2 % (0-4.5); HEMATOCRIT 39.4 % (35.4-49); HEMOGLOBIN 12.9 GM/dL (11.7-16.9); MCH 27.5 pg (25.7-33.7); MCHC 32.8 g/dl (32.0-35.9); MEAN CELL VOLUME 83.6 fl (80-96); MEAN PLT VOLUME 8.1 fl (7.5-11.1); MONO % 6.5 % (3.8-10.2); NEUT % 79.9 % (42.8-82.8); PLATELET COUNT 268 10^3/uL (134-434); RBC 4.71 M/mm3 (4.00-5.60); RDW 15.7 % (11.9-15.9); WHITE BLOOD COUNT 11.9 K/mm3 (4.0-10.0)
[2021-12-18 15:03] LABS: EPI CELLS 4 /uL (0-25.1); HYALINE CASTS 0 /uL (0-3.1); PH,URINE 6.5 (5.0-8.0); URINE APPEARANCE CLEAR; URINE BACTERIA 29 /uL (0-1359); URINE BILIRUBIN NEGATIVE (NEGATIVE); URINE COLOR YELLOW; URINE GLUCOSE (UA) NEGATIVE (NEGATIVE); URINE KETONE NEGATIVE (NEGATIVE); URINE LEUK ESTERASE NEGATIVE (NEGATIVE); URINE NITRITE NEGATIVE (NEGATIVE); URINE PROTEIN 2+ (NEGATIVE); URINE RBC 59 /uL (0-23.9); URINE UROBILINOGEN 0.2 mg/dL (0.2-1.0); URINE WBC 4 /uL (0-25.8)
[2021-12-18 15:16] LABS: ALBUMIN 3.3 g/dl (3.4-5.0); BLOOD UREA NITROGEN 38.9 mg/dL (7-18); CALCIUM 9.3 mg/dL (8.5-10.1)
[2021-12-18 15:21] LABS: BILIRUBIN,TOTAL 0.9 mg/dL (0.2-1); CREATININE 1.3 mg/dL (0.55-1.3); TOT PROT 7.1 g/dl (6.4-8.2)
[2021-12-18 16:40] VITALS: BP 167/88; PULSE 87
== END 2021-12-18 17:11 | disposition home or self-care (01) ==
LOC: JER 11:49
DX: N39.0 Urinary tract infection, site not specified (principal); R33.9 Retention of urine, unspecified
CPT/HCPCS: 36415; 80053; 81003; 83735; 85025; 87086; 93005; 93010; 99284-25

== ENCOUNTER 2021-12-31 10:58 | Emergency (ER) | payer OTHER ==
[2021-12-31 11:16] VITALS: BP 168/60; TEMP 97.5; BMI 21.7
[2021-12-31 12:19] LABS: EPI CELLS 33 /uL (0-25.1); HYALINE CASTS 1 /uL (0-3.1); PH,URINE 8.5 (5.0-8.0); URINE APPEARANCE CLEAR; URINE BACTERIA 66 /uL (0-1359); URINE BILIRUBIN NEGATIVE (NEGATIVE); URINE COLOR ORANGE; URINE GLUCOSE (UA) NEGATIVE (NEGATIVE); URINE KETONE NEGATIVE (NEGATIVE); URINE LEUK ESTERASE TRACE (NEGATIVE); URINE NITRITE NEGATIVE (NEGATIVE); URINE PROTEIN 2+ (NEGATIVE); URINE RBC 3146 /uL (0-23.9); URINE UROBILINOGEN 0.2 mg/dL (0.2-1.0); URINE WBC 69 /uL (0-25.8)
[2021-12-31 13:19] VITALS: PULSE 62
== END 2021-12-31 13:15 | disposition home or self-care (01) ==
LOC: JER 10:58
DX: R31.0 Gross hematuria (principal); R33.8 Other retention of urine
CPT/HCPCS: 81003; 87086; 99283-25

== ENCOUNTER 2022-01-09 11:27 | Inpatient (IN) | payer OTHER ==
[2022-01-09] MEDS: CLOTRIMAZOLE 1% CREAM TP SCH ×2 (12:45→22:54)
[2022-01-09] MEDS ORDERED: ACETAMINOPHEN 1000 MG/100 ML BAG IVPB ONE (13:01)
[2022-01-09] MEDS ORDERED: ACETAMINOPHEN INJECTION 100 ML IVPB ONE (13:05)
[2022-01-09 13:10] LABS: BASO % 0.4 % (0-2.0); HEMATOCRIT 36.3 % (35.4-49); HEMOGLOBIN 12.1 GM/dL (11.7-16.9); LYMPH % 19.6 % (8-40); MCH 27.8 pg (25.7-33.7); MCHC 33.4 g/dl (32.0-35.9); MEAN CELL VOLUME 83.2 fl (80-96); MEAN PLT VOLUME 7.8 fl (7.5-11.1); MONO % 9.3 % (3.8-10.2); NEUT % 68.7 % (42.8-82.8); PLATELET COUNT 240 10^3/uL (134-434); RBC 4.36 M/mm3 (4.00-5.60); RDW 16.5 % (11.9-15.9); WHITE BLOOD COUNT 8.9 K/mm3 (4.0-10.0)
[2022-01-09 13:27] LABS: ALBUMIN 3.1 g/dl (3.4-5.0); CALCIUM 8.8 mg/dL (8.5-10.1)
[2022-01-09 13:31] LABS: CREATININE 1.7 mg/dL (0.55-1.3)
[2022-01-09 13:32] LABS: BILIRUBIN,TOTAL 0.4 mg/dL (0.2-1); TOT PROT 6.6 g/dl (6.4-8.2)
[2022-01-09 13:33] LABS: EPI CELLS 3 /uL (0-25.1); HYALINE CASTS 2 /uL (0-3.1); URINE APPEARANCE CLOUDY; URINE BACTERIA >9,000 /uL (0-1359); URINE BILIRUBIN NEGATIVE (NEGATIVE); URINE COLOR YELLOW; URINE GLUCOSE (UA) NEGATIVE (NEGATIVE); URINE KETONE NEGATIVE (NEGATIVE); URINE LEUK ESTERASE 2+ (NEGATIVE); URINE NITRITE POSITIVE (NEGATIVE); URINE PROTEIN 1+ (NEGATIVE); URINE RBC 13 /uL (0-23.9); URINE UROBILINOGEN 0.2 mg/dL (0.2-1.0); URINE WBC 367 /uL (0-25.8)
[2022-01-09] MEDS ORDERED: MEROPENEM 1 GM in DEXTROSE 5%-WATER 100 ML IVPB ONE (13:53)
[2022-01-09] MEDS ORDERED: IMIPENEM/CILASTATIN SODIUM 1,000 MG in SODIUM CHLORIDE 100 ML IVPB ONE (13:58)
[2022-01-09] MEDS ORDERED: MEROPENEM 1 GM VIAL (RESTRICTED TO ID) IVPB ONE ×2 (14:00→22:38)
[2022-01-09] MEDS: MUPIROCIN CA 2% TOPICAL CREAM 15 GM TUBE TP SCH ×2 (15:13→22:54)
[2022-01-09] MEDS: SODIUM CHLORIDE 1,000 ML IV SCH (15:14)
[2022-01-09] MEDS ORDERED: LACTATED RINGERS SOLUTION 1000 ML INFUS.BAG IV ONE (16:27)
[2022-01-09] MEDS ORDERED: APIXABAN 2.5 MG TABLET ONE (22:34)
[2022-01-09] MEDS ORDERED: CARVEDILOL 12.5 MG TABLET (FP) ONE (22:34)
[2022-01-09] MEDS ORDERED: TAMSULOSIN HCL 0.4 MG CAP ONE (22:35)
[2022-01-09] MEDS: TAMSULOSIN HCL 0.4 MG CAP PO SCH (22:54)
[2022-01-09] MEDS: APIXABAN 2.5 MG TABLET PO SCH (22:54)
[2022-01-09] MEDS: MEROPENEM 1 GM in DEXTROSE 5%-WATER 100 ML IVPB SCH (22:54)
[2022-01-10 03:20] VITALS: BMI 22.9
[2022-01-10] MEDS: CARVEDILOL 12.5 MG TABLET (FP) PO SCH ×3 (06:10→21:15)
[2022-01-10] MEDS ORDERED: DEXTROSE 5%-WATER 100 ML IVPB ONE ×2 (10:56→20:55)
[2022-01-10] MEDS ORDERED: MEROPENEM 1 GM VIAL (RESTRICTED TO ID) IVPB ONE ×2 (10:56→20:55)
[2022-01-10] MEDS: APIXABAN 2.5 MG TABLET PO SCH ×2 (11:02→21:15)
[2022-01-10] MEDS: amLODIPine BESYLATE 5 MG TABLET (FP) PO SCH (11:02)
[2022-01-10] MEDS: ASPIRIN 81 MG CHEWABLE TABLETS PO SCH (11:02)
[2022-01-10] MEDS: MUPIROCIN CA 2% TOPICAL CREAM 15 GM TUBE TP SCH ×2 (11:03→22:42)
[2022-01-10] MEDS: MEROPENEM 1 GM in DEXTROSE 5%-WATER 100 ML IVPB SCH ×2 (11:03→21:15)
[2022-01-10] MEDS: CLOTRIMAZOLE 1% CREAM TP SCH ×2 (11:03→22:42)
[2022-01-10 14:26] LABS: CALCIUM 8.4 mg/dL (8.5-10.1)
[2022-01-10 14:27] LABS: BLOOD UREA NITROGEN 32.2 mg/dL (7-18)
[2022-01-10 14:30] LABS: CREATININE 1.5 mg/dL (0.55-1.3)
[2022-01-10] MEDS: SODIUM CHLORIDE 1,000 ML IV SCH (21:14)
[2022-01-10] MEDS: TAMSULOSIN HCL 0.4 MG CAP PO SCH (21:15)
[2022-01-11 09:02] LABS: HEMOGLOBIN 11.4 GM/dL (11.7-16.9); LYMPH % 15.2 % (8-40); MCH 27.2 pg (25.7-33.7); MCHC 32.5 g/dl (32.0-35.9); MEAN CELL VOLUME 83.7 fl (80-96); MONO % 11.6 % (3.8-10.2); NEUT % 69.2 % (42.8-82.8); PLATELET COUNT 213 10^3/uL (134-434); RBC 4.18 M/mm3 (4.00-5.60); RDW 16.2 % (11.9-15.9); WHITE BLOOD COUNT 10.5 K/mm3 (4.0-10.0)
[2022-01-11 09:21] LABS: BLOOD UREA NITROGEN 26.1 mg/dL (7-18); CALCIUM 8.1 mg/dL (8.5-10.1); MAGNESIUM 2.2 mg/dL (1.8-2.4)
[2022-01-11 09:24] LABS: PHOSPHOROUS 2.4 mg/dL (2.5-4.9)
[2022-01-11 09:25] LABS: CREATININE 1.3 mg/dL (0.55-1.3)
[2022-01-11] MEDS ORDERED: MEROPENEM 1 GM VIAL (RESTRICTED TO ID) IVPB ONE ×2 (09:30→20:46)
[2022-01-11] MEDS ORDERED: DEXTROSE 5%-WATER 100 ML IVPB ONE ×2 (09:31→20:47)
[2022-01-11] MEDS: CARVEDILOL 12.5 MG TABLET (FP) PO SCH ×2 (09:35→21:53)
[2022-01-11] MEDS: APIXABAN 2.5 MG TABLET PO SCH ×2 (09:35→21:54)
[2022-01-11] MEDS: MEROPENEM 1 GM in DEXTROSE 5%-WATER 100 ML IVPB SCH ×2 (09:35→21:47)
[2022-01-11] MEDS: ASPIRIN 81 MG CHEWABLE TABLETS PO SCH (09:35)
[2022-01-11] MEDS: amLODIPine BESYLATE 5 MG TABLET (FP) PO SCH (09:35)
[2022-01-11] MEDS: CLOTRIMAZOLE 1% CREAM TP SCH ×2 (09:36→21:55)
[2022-01-11] MEDS: MUPIROCIN CA 2% TOPICAL CREAM 15 GM TUBE TP SCH ×2 (09:36→21:52)
[2022-01-11] MEDS: INSULIN SLIDING SCALE (NOVOLOG) 1 VIAL SQ SCH ×3 (11:26→21:55)
[2022-01-11] MEDS ORDERED: NAPH,MB-DB/K PH,MBDB POWDER PACKET PO ONE (12:45)
[2022-01-11] MEDS: SODIUM CHLORIDE 1,000 ML IV SCH (21:53)
[2022-01-11] MEDS: TAMSULOSIN HCL 0.4 MG CAP PO SCH (21:54)
[2022-01-12] MEDS: INSULIN SLIDING SCALE (NOVOLOG) 1 VIAL SQ SCH ×4 (06:42→21:35)
[2022-01-12 08:18] LABS: BASO % 0.4 % (0-2.0); EOS % 3.4 % (0-4.5); HEMATOCRIT 32.6 % (35.4-49); LYMPH % 16.6 % (8-40); MCH 27.9 pg (25.7-33.7); MCHC 33.6 g/dl (32.0-35.9); MEAN PLT VOLUME 7.6 fl (7.5-11.1); MONO % 12.9 % (3.8-10.2); NEUT % 66.7 % (42.8-82.8); PLATELET COUNT 198 10^3/uL (134-434); RBC 3.93 M/mm3 (4.00-5.60); RDW 16.3 % (11.9-15.9)
[2022-01-12 08:45] LABS: CALCIUM 7.9 mg/dL (8.5-10.1)
[2022-01-12 08:46] LABS: BLOOD UREA NITROGEN 29.7 mg/dL (7-18); MAGNESIUM 2.1 mg/dL (1.8-2.4)
[2022-01-12 08:49] LABS: CREATININE 1.2 mg/dL (0.55-1.3); PHOSPHOROUS 2.6 mg/dL (2.5-4.9)
[2022-01-12 08:50] LABS: BILIRUBIN,TOTAL 0.7 mg/dL (0.2-1); TOT PROT 5.3 g/dl (6.4-8.2)
[2022-01-12 08:53] LABS: ALBUMIN 2.4 g/dl (3.4-5.0)
[2022-01-12] MEDS: MUPIROCIN CA 2% TOPICAL CREAM 15 GM TUBE TP SCH ×2 (10:00→21:34)
[2022-01-12] MEDS ORDERED: DEXTROSE 5%-WATER 100 ML IVPB ONE (10:25)
[2022-01-12] MEDS ORDERED: MEROPENEM 1 GM VIAL (RESTRICTED TO ID) IVPB ONE (10:25)
[2022-01-12] MEDS: ASPIRIN 81 MG CHEWABLE TABLETS PO SCH (10:33)
[2022-01-12] MEDS: APIXABAN 2.5 MG TABLET PO SCH ×2 (10:33→21:33)
[2022-01-12] MEDS: amLODIPine BESYLATE 5 MG TABLET (FP) PO SCH (10:33)
[2022-01-12] MEDS: MEROPENEM 1 GM in DEXTROSE 5%-WATER 100 ML IVPB SCH (10:33)
[2022-01-12] MEDS: CARVEDILOL 12.5 MG TABLET (FP) PO SCH ×2 (10:33→21:33)
[2022-01-12] MEDS: CLOTRIMAZOLE 1% CREAM TP SCH ×2 (10:35→21:34)
[2022-01-12] MEDS: SODIUM CHLORIDE 1,000 ML IV SCH (17:35)
[2022-01-12] MEDS ORDERED: ACETAMINOPHEN 1000 MG/100 ML BAG IVPB ONE (20:55)
[2022-01-12] MEDS: TAMSULOSIN HCL 0.4 MG CAP PO SCH (21:33)
[2022-01-12] MEDS: ERTAPENEM SODIUM 1 GM in SODIUM CHLORIDE 50 ML IVPB SCH (22:24)
[2022-01-13] MEDS: INSULIN SLIDING SCALE (NOVOLOG) 1 VIAL SQ SCH ×4 (06:28→22:12)
[2022-01-13] MEDS: MUPIROCIN CA 2% TOPICAL CREAM 15 GM TUBE TP SCH ×2 (09:39→22:02)
[2022-01-13] MEDS: CLOTRIMAZOLE 1% CREAM TP SCH ×2 (09:39→22:02)
[2022-01-13] MEDS: SODIUM CHLORIDE 1,000 ML IV SCH (09:40)
[2022-01-13] MEDS: ASPIRIN 81 MG CHEWABLE TABLETS PO SCH (09:41)
[2022-01-13] MEDS: APIXABAN 2.5 MG TABLET PO SCH ×2 (09:41→22:01)
[2022-01-13] MEDS: CARVEDILOL 12.5 MG TABLET (FP) PO SCH ×2 (09:41→22:01)
[2022-01-13] MEDS: amLODIPine BESYLATE 5 MG TABLET (FP) PO SCH (09:42)
[2022-01-13 10:50] LABS: BASO % 0.4 % (0-2.0); EOS % 5.2 % (0-4.5); HEMATOCRIT 30.9 % (35.4-49); HEMOGLOBIN 10.5 GM/dL (11.7-16.9); LYMPH % 18.5 % (8-40); MCH 28.3 pg (25.7-33.7); MEAN PLT VOLUME 7.7 fl (7.5-11.1); MONO % 12.6 % (3.8-10.2); NEUT % 63.3 % (42.8-82.8); PLATELET COUNT 190 10^3/uL (134-434); RBC 3.72 M/mm3 (4.00-5.60); RDW 16.1 % (11.9-15.9); WHITE BLOOD COUNT 8.1 K/mm3 (4.0-10.0)
[2022-01-13 11:38] LABS: ALBUMIN 2.2 g/dl (3.4-5.0); CALCIUM 7.8 mg/dL (8.5-10.1)
[2022-01-13 11:39] LABS: BLOOD UREA NITROGEN 34.2 mg/dL (7-18)
[2022-01-13 11:41] LABS: CREATININE 1.1 mg/dL (0.55-1.3); PHOSPHOROUS 3.1 mg/dL (2.5-4.9)
[2022-01-13 11:43] LABS: BILIRUBIN,TOTAL 0.6 mg/dL (0.2-1)
[2022-01-13] MEDS: ERTAPENEM SODIUM 1 GM in SODIUM CHLORIDE 50 ML IVPB SCH (11:47)
[2022-01-13 13:11] LABS: URIC ACID 5.7 mg/dL (2.6-7.2)
[2022-01-13] MEDS ORDERED: LIDOCAINE HCL 2% (20ML MULTI-DOSE VIAL) INF ONE (16:15)
[2022-01-13] MEDS ORDERED: TRIAMCINOLONE ACET 40MG/1ML VIAL IM ONE (16:17)
[2022-01-13] MEDS ORDERED: VANCOMYCIN 1,000 MG in DEXTROSE 5%-WATER - 250 ML IVPB ONE (17:15)
[2022-01-13] MEDS ORDERED: VANCOMYCIN/WATER FOR INJ (PEG) 1,000 MG/200 ML BAG IVPB ONE (17:29)
[2022-01-13 17:59] LABS: BF WBC & OTHER NUCLEATED CELLS 33199 /mm3
[2022-01-13 19:06] LABS: BODY FLUID MACROPHAGES 8 %; BODY FLUID MONOCYTE 4 %
[2022-01-13] MEDS ORDERED: predniSONE 20 MG TABLET (UD) PO ONE (21:53)
[2022-01-13] MEDS: TAMSULOSIN HCL 0.4 MG CAP PO SCH (22:01)
[2022-01-14] MEDS: SODIUM CHLORIDE 1,000 ML IV SCH ×2 (06:12→19:04)
[2022-01-14] MEDS: INSULIN SLIDING SCALE (NOVOLOG) 1 VIAL SQ SCH ×4 (06:14→23:06)
[2022-01-14] MEDS: ASPIRIN 81 MG CHEWABLE TABLETS PO SCH (10:13)
[2022-01-14] MEDS: amLODIPine BESYLATE 5 MG TABLET (FP) PO SCH (10:13)
[2022-01-14] MEDS: LISINOPRIL 20 MG TABLET PO SCH (10:13)
[2022-01-14] MEDS: CARVEDILOL 12.5 MG TABLET (FP) PO SCH ×2 (10:13→23:04)
[2022-01-14] MEDS: APIXABAN 2.5 MG TABLET PO SCH ×2 (10:13→23:04)
[2022-01-14] MEDS: MUPIROCIN CA 2% TOPICAL CREAM 15 GM TUBE TP SCH ×2 (10:14→23:04)
[2022-01-14] MEDS: CLOTRIMAZOLE 1% CREAM TP SCH ×2 (10:14→23:06)
[2022-01-14] MEDS: ERTAPENEM SODIUM 1 GM in SODIUM CHLORIDE 50 ML IVPB SCH (10:30)
[2022-01-14 10:42] LABS: CRYSTALS,SYNOVIAL FLUID POSITIVE
[2022-01-14 10:59] LABS: BASO % 0.2 % (0-2.0); HEMATOCRIT 34.8 % (35.4-49); HEMOGLOBIN 11.6 GM/dL (11.7-16.9); LYMPH % 13.1 % (8-40); MCH 27.7 pg (25.7-33.7); MCHC 33.4 g/dl (32.0-35.9); MEAN CELL VOLUME 82.9 fl (80-96); MEAN PLT VOLUME 7.5 fl (7.5-11.1); MONO % 2.3 % (3.8-10.2); NEUT % 84.4 % (42.8-82.8); PLATELET COUNT 225 10^3/uL (134-434); RBC 4.21 M/mm3 (4.00-5.60); RDW 16.4 % (11.9-15.9); WHITE BLOOD COUNT 7.1 K/mm3 (4.0-10.0)
[2022-01-14 11:24] LABS: ALBUMIN 2.3 g/dl (3.4-5.0); CALCIUM 8.3 mg/dL (8.5-10.1); MAGNESIUM 2.2 mg/dL (1.8-2.4)
[2022-01-14 11:25] LABS: BLOOD UREA NITROGEN 38.6 mg/dL (7-18)
[2022-01-14 11:26] LABS: URIC ACID 6.6 mg/dL (2.6-7.2)
[2022-01-14 11:27] LABS: PHOSPHOROUS 3.7 mg/dL (2.5-4.9)
[2022-01-14 11:28] LABS: BILIRUBIN,TOTAL 0.5 mg/dL (0.2-1); TOT PROT 5.6 g/dl (6.4-8.2)
[2022-01-14] MEDS: predniSONE 10 MG TABLET (UD) PO SCH (12:38)
[2022-01-14] MEDS: ACETAMINOPHEN 500 MG TABLET (FP) PO PRN (13:39)
[2022-01-14] MEDS ORDERED: VANCOMYCIN/WATER FOR INJ (PEG) 750 MG/150 ML BAG IVPB SCH (17:15)
[2022-01-14] MEDS: TAMSULOSIN HCL 0.4 MG CAP PO SCH (23:04)
[2022-01-15] MEDS: INSULIN SLIDING SCALE (NOVOLOG) 1 VIAL SQ SCH ×4 (06:31→21:03)
[2022-01-15] MEDS: ASPIRIN 81 MG CHEWABLE TABLETS PO SCH (09:37)
[2022-01-15] MEDS: APIXABAN 2.5 MG TABLET PO SCH ×2 (09:38→21:04)
[2022-01-15] MEDS: LISINOPRIL 20 MG TABLET PO SCH (09:38)
[2022-01-15] MEDS: CARVEDILOL 12.5 MG TABLET (FP) PO SCH ×2 (09:38→21:04)
[2022-01-15 09:39] LABS: BASO % 0.2 % (0-2.0); HEMATOCRIT 36.2 % (35.4-49); HEMOGLOBIN 11.7 GM/dL (11.7-16.9); LYMPH % 18.3 % (8-40); MCH 27.5 pg (25.7-33.7); MCHC 32.4 g/dl (32.0-35.9); MEAN CELL VOLUME 84.8 fl (80-96); MEAN PLT VOLUME 7.8 fl (7.5-11.1); MONO % 6.6 % (3.8-10.2); NEUT % 74.9 % (42.8-82.8); PLATELET COUNT 266 10^3/uL (134-434); RBC 4.27 M/mm3 (4.00-5.60); RDW 16.1 % (11.9-15.9); WHITE BLOOD COUNT 9.8 K/mm3 (4.0-10.0)
[2022-01-15] MEDS: ACETAMINOPHEN 500 MG TABLET (FP) PO PRN ×2 (09:39→20:53)
[2022-01-15] MEDS: amLODIPine BESYLATE 5 MG TABLET (FP) PO SCH (09:39)
[2022-01-15] MEDS: predniSONE 10 MG TABLET (UD) PO SCH (09:40)
[2022-01-15] MEDS: CLOTRIMAZOLE 1% CREAM TP SCH ×2 (09:44→22:00)
[2022-01-15] MEDS: MUPIROCIN CA 2% TOPICAL CREAM 15 GM TUBE TP SCH ×2 (09:44→23:00)
[2022-01-15 10:14] LABS: CALCIUM 8.2 mg/dL (8.5-10.1)
[2022-01-15 10:15] LABS: ALBUMIN 2.2 g/dl (3.4-5.0); BLOOD UREA NITROGEN 46.1 mg/dL (7-18); MAGNESIUM 2.3 mg/dL (1.8-2.4)
[2022-01-15 10:17] LABS: PHOSPHOROUS 3.6 mg/dL (2.5-4.9)
[2022-01-15 10:18] LABS: BILIRUBIN,TOTAL 0.2 mg/dL (0.2-1); TOT PROT 5.3 g/dl (6.4-8.2)
[2022-01-15 10:25] LABS: CREATININE 0.8 mg/dL (0.55-1.3)
[2022-01-15] MEDS: SODIUM CHLORIDE 1,000 ML IV SCH ×2 (10:26→14:48)
[2022-01-15] MEDS: ERTAPENEM SODIUM 1 GM in SODIUM CHLORIDE 50 ML IVPB SCH (10:27)
[2022-01-15] MEDS ORDERED: amLODIPine BESYLATE 5 MG TABLET (FP) PO ONE (16:57)
[2022-01-15] MEDS: TAMSULOSIN HCL 0.4 MG CAP PO SCH (21:03)
[2022-01-16] MEDS: INSULIN SLIDING SCALE (NOVOLOG) 1 VIAL SQ SCH ×4 (06:00→21:10)
[2022-01-16 09:44] LABS: BASO % 0.2 % (0-2.0); EOS % 0.5 % (0-4.5); HEMATOCRIT 35.5 % (35.4-49); HEMOGLOBIN 11.8 GM/dL (11.7-16.9); LYMPH % 25.1 % (8-40); MCH 27.7 pg (25.7-33.7); MCHC 33.3 g/dl (32.0-35.9); MEAN PLT VOLUME 7.4 fl (7.5-11.1); MONO % 8.9 % (3.8-10.2); NEUT % 65.3 % (42.8-82.8); PLATELET COUNT 285 10^3/uL (134-434); RBC 4.28 M/mm3 (4.00-5.60); RDW 16.3 % (11.9-15.9); WHITE BLOOD COUNT 8.9 K/mm3 (4.0-10.0)
[2022-01-16] MEDS: CARVEDILOL 12.5 MG TABLET (FP) PO SCH ×2 (09:47→21:09)
[2022-01-16] MEDS: ACETAMINOPHEN 500 MG TABLET (FP) PO PRN ×2 (09:47→21:11)
[2022-01-16] MEDS: APIXABAN 2.5 MG TABLET PO SCH ×2 (09:48→21:09)
[2022-01-16] MEDS: predniSONE 10 MG TABLET (UD) PO SCH (09:48)
[2022-01-16] MEDS: MUPIROCIN CA 2% TOPICAL CREAM 15 GM TUBE TP SCH ×2 (09:48→21:09)
[2022-01-16] MEDS: CLOTRIMAZOLE 1% CREAM TP SCH ×2 (09:48→21:08)
[2022-01-16] MEDS: ASPIRIN 81 MG CHEWABLE TABLETS PO SCH (09:48)
[2022-01-16] MEDS: ERTAPENEM SODIUM 1 GM in SODIUM CHLORIDE 50 ML IVPB SCH (09:49)
[2022-01-16 10:22] LABS: CALCIUM 8.2 mg/dL (8.5-10.1)
[2022-01-16 10:23] LABS: ALBUMIN 2.1 g/dl (3.4-5.0); BLOOD UREA NITROGEN 40.1 mg/dL (7-18); MAGNESIUM 2.1 mg/dL (1.8-2.4)
[2022-01-16 10:26] LABS: CREATININE 0.8 mg/dL (0.55-1.3)
[2022-01-16 10:27] LABS: BILIRUBIN,TOTAL 0.4 mg/dL (0.2-1); TOT PROT 5.2 g/dl (6.4-8.2)
[2022-01-16] MEDS: LISINOPRIL 20 MG TABLET PO SCH (10:58)
[2022-01-16] MEDS: amLODIPine BESYLATE 5 MG TABLET (FP) PO SCH (10:58)
[2022-01-16] MEDS: SODIUM CHLORIDE 1,000 ML IV SCH (15:12)
[2022-01-16] MEDS: TAMSULOSIN HCL 0.4 MG CAP PO SCH (21:09)
[2022-01-17] MEDS: INSULIN SLIDING SCALE (NOVOLOG) 1 VIAL SQ SCH ×4 (06:00→21:24)
[2022-01-17] MEDS ORDERED: amLODIPine BESYLATE 5 MG TABLET (FP) PO ONE (09:29)
[2022-01-17] MEDS: LISINOPRIL 20 MG TABLET PO SCH (10:25)
[2022-01-17] MEDS: APIXABAN 2.5 MG TABLET PO SCH ×2 (10:25→21:23)
[2022-01-17] MEDS: ASPIRIN 81 MG CHEWABLE TABLETS PO SCH (10:25)
[2022-01-17] MEDS: CARVEDILOL 12.5 MG TABLET (FP) PO SCH ×2 (10:25→21:23)
[2022-01-17] MEDS: CLOTRIMAZOLE 1% CREAM TP SCH ×2 (10:26→21:23)
[2022-01-17] MEDS: predniSONE 10 MG TABLET (UD) PO SCH (10:26)
[2022-01-17] MEDS: MUPIROCIN CA 2% TOPICAL CREAM 15 GM TUBE TP SCH ×2 (10:26→21:23)
[2022-01-17] MEDS: amLODIPine BESYLATE 5 MG TABLET (FP) PO SCH (10:26)
[2022-01-17] MEDS: ERTAPENEM SODIUM 1 GM in SODIUM CHLORIDE 50 ML IVPB SCH (13:21)
[2022-01-17] MEDS ORDERED: FUROSEMIDE 20 MG TABLET (FP) PO ONE (17:25)
[2022-01-17] MEDS: TAMSULOSIN HCL 0.4 MG CAP PO SCH (21:22)
[2022-01-17] MEDS: ARTIFICIAL TEARS (POLYVINYL ALCOHOL) OPTH DROPS OU PRN (21:23)
[2022-01-18] MEDS ORDERED: ERTAPENEM SODIUM 1 GM in SODIUM CHLORIDE 50 ML IVPB ONE (06:00)
[2022-01-18] MEDS: INSULIN SLIDING SCALE (NOVOLOG) 1 VIAL SQ SCH ×2 (06:21→11:38)
[2022-01-18 08:33] LABS: CALCIUM 8.3 mg/dL (8.5-10.1)
[2022-01-18 08:34] LABS: ALBUMIN 2.3 g/dl (3.4-5.0)
[2022-01-18 08:37] LABS: CREATININE 0.7 mg/dL (0.55-1.3)
[2022-01-18 08:38] LABS: BILIRUBIN,TOTAL 0.8 mg/dL (0.2-1); TOT PROT 5.3 g/dl (6.4-8.2)
[2022-01-18] MEDS ORDERED: FUROSEMIDE 40 MG/4 ML INJECTABLE VIAL IVPUSH ONE ×2 (09:00→12:33)
[2022-01-18 09:09] LABS: BASO % 0.2 % (0-2.0); EOS % 0.8 % (0-4.5); HEMATOCRIT 36.4 % (35.4-49); LYMPH % 28.1 % (8-40); MCH 27.6 pg (25.7-33.7); MCHC 33.1 g/dl (32.0-35.9); MEAN CELL VOLUME 83.3 fl (80-96); MEAN PLT VOLUME 7.2 fl (7.5-11.1); MONO % 11.2 % (3.8-10.2); NEUT % 59.7 % (42.8-82.8); PLATELET COUNT 295 10^3/uL (134-434); RBC 4.37 M/mm3 (4.00-5.60); RDW 16.1 % (11.9-15.9); WHITE BLOOD COUNT 9.9 K/mm3 (4.0-10.0)
[2022-01-18] MEDS: LISINOPRIL 20 MG TABLET PO SCH (10:05)
[2022-01-18] MEDS: APIXABAN 2.5 MG TABLET PO SCH (10:05)
[2022-01-18] MEDS: CARVEDILOL 12.5 MG TABLET (FP) PO SCH (10:05)
[2022-01-18] MEDS: amLODIPine BESYLATE 5 MG TABLET (FP) PO SCH (10:05)
[2022-01-18] MEDS: ASPIRIN 81 MG CHEWABLE TABLETS PO SCH (10:06)
[2022-01-18] MEDS: CLOTRIMAZOLE 1% CREAM TP SCH (10:11)
[2022-01-18] MEDS: MUPIROCIN CA 2% TOPICAL CREAM 15 GM TUBE TP SCH (10:11)
[2022-01-18] MEDS: predniSONE 10 MG TABLET (UD) PO SCH (10:13)
[2022-01-18] MEDS: ARTIFICIAL TEARS (POLYVINYL ALCOHOL) OPTH DROPS OU PRN (10:15)
[2022-01-18 12:46] VITALS: BP 157/83; PULSE 60; TEMP 98.2
[2022-01-18 16:17] LABS: SARS-CoV-2 NAA Not Detected (Not Detected)
== END 2022-01-18 13:49 | DRG 699 ==
LOC: JER 11:27 → JERBED 14:05 → J5S 01-10 01:30
PROVIDERS: ADMIT Internal Medicine; ATTEND Internal Medicine
PROC: 0S9C3ZZ Drainage of Right Knee Joint, Percutaneous Approach (ICD-10-PCS; principal; 2022-01-13)
DX: T83.511A Infection and inflammatory reaction due to indwelling urethral catheter, initial encounter (principal); N17.9 Acute kidney failure, unspecified; I69.351 Hemiplegia and hemiparesis following cerebral infarction affecting right dominant side; I13.0 Hypertensive heart and chronic kidney disease with heart failure and stage 1 through stage 4 chronic kidney disease, or unspecified chronic kidney disease; Y84.8 Other medical procedures as the cause of abnormal reaction of the patient, or of later complication, without mention of misadventure at the time of the procedure; I25.10 Atherosclerotic heart disease of native coronary artery without angina pectoris; Z95.1 Presence of aortocoronary bypass graft; N40.1 Benign prostatic hyperplasia with lower urinary tract symptoms; R33.8 Other retention of urine; E11.51 Type 2 diabetes mellitus with diabetic peripheral angiopathy without gangrene; E78.5 Hyperlipidemia, unspecified; N39.0 Urinary tract infection, site not specified; B96.1 Klebsiella pneumoniae [K. pneumoniae] as the cause of diseases classified elsewhere; E11.22 Type 2 diabetes mellitus with diabetic chronic kidney disease; N18.9 Chronic kidney disease, unspecified; M10.9 Gout, unspecified; D72.829 Elevated white blood cell count, unspecified; R14.0 Abdominal distension (gaseous); M25.561 Pain in right knee; N47.6 Balanoposthitis; I50.9 Heart failure, unspecified
CPT/HCPCS: 36415; 73562-TC-RT-FY; 80048; 80053; 81003; 82962; 83735; 84100; 84550; 85025; 87070; 87075; 87086; 87186; 87205; 89060; 93005; 93010; 93971-TC; 97116-GP; 97162-GP; 99285-25; C9803-CS; U0003; U0005